=== PATIENT | female | born 1970 | race Caucasian/White ===

== ENCOUNTER 2017-02-16 18:29 | Observation (INO) | payer BC ==
--- NOTE | ~2017-02-16 | DS ---
Discharge Summary [id number] [place]. [address] NAME: ASPEN MAE : 66 STATUS : DIS Tiffany PAT#: [id number] AGE: 46 ADM/REG DATE : 02/16/17 MR#: [id number] REPORT SERV DATE: 02/18/17 DICTATED BY: EMILIA WHITLEY DATE: 02/17/17 REPORT STATUS : Draft TRANSCRIBED BY: MODL DATE: 02/17/17 ADMISSION DATE: 02/16/2017 DISCHARGE DATE: 02/17/2017 DISCHARGE DIAGNOSES: 1. Hypertensive urgency. 2. Hypothyroidism with TSH being 0.009, the patient needs to have outpatient evaluation for current hyperthyroidism status. 3. BMI 36.6. HISTORY OF PRESENT ILLNESS: This is a 46-year-old female patient who came to the hospital after seen by primary care physician for hypertensive urgency. Please see dictated H and P. HOSPITAL COURSE: She was admitted to the hospital, was given hydralazine two doses of 10 mg IV, and she was put on amlodipine on top of her hypertensive medication regimen. Her blood pressure has been around 130 the whole time during the hospitalization and she is not having any symptoms of hypertensive urgency. Had an initial evaluation, which showed TSH being significantly abnormal with a level of 0.009 and with replacement. She also lost 28 pounds within two months. Having this abnormal thyroid laboratory result with significant clinical symptoms with hypertensive urgency, the patient is directed to take additional amlodipine on top of her hypertensive medication regimen and definitely need to evaluate for outpatient thyroid adjustment. I had a long discussion with this patient and family of being in the and they all voiced understanding. She remains in stable condition, will be discharged home, with close followup at the office for the thyroid re-evaluation. DISCHARGE MEDICATIONS: Same as home medications. We are adding amlodipine 10 mg once a day on top of her regular regimen. Again, the patient needs thyroid evaluation. DICTATED BY: Cecilio Torres/FARRAH Emilia Whitley M.D. / [id number] CC: Cecilio Torres SUSAN R.
--- NOTE | ~2017-02-16 | HP ---
History And Physical [address] [place]. [address] NAME: ASPEN MAE : 66 STATUS : ADM Tiffany PAT#: [id number] AGE: 46 ADM/REG DATE : 02/16/17 MR#: [id number] REPORT SERV DATE: 02/17/17 DICTATED BY: ALBAN MCGUIRE DATE: 02/16/17 REPORT STATUS : Draft TRANSCRIBED BY: MODVj DATE: 02/16/17 DATE OF ADMISSION: 02/16/2017 CHIEF COMPLAINT: A 46-year-old female presenting with uncontrolled hypertension. HISTORY OF PRESENTING ILLNESS: The patient's history was obtained through careful interview with the patient and three of her children coupled with review of [employer] and [employer] medical records. The patient actually developed high blood pressure first when she was 22 years old. 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 But over the last nine months in particular, her blood pressure has become quite difficult to control and over the last two weeks, she has had symptomatic blood pressure that is almost constantly high despite taking her medications. Three days ago, she had to leave work early because of dizziness, lightheadedness, nausea, chest discomfort, blurry vision, shortness of breath; all of these seemed to be symptoms that she occasionally develops when she has elevated blood pressure. Examples of blood pressure are readings such as 206/112 and frequent diastolic blood pressures even greater than 120. She describes a headache as well in the back of her head, 7 to 8 out of 10 severity. She describes the chest discomfort under her left breast, a heaviness, 3 to 4 out of 10 severity that resolved with treatment of her blood pressure. REVIEW OF SYSTEMS: Otherwise, a 14-point review of systems was obtained and was negative. PAST MEDICAL HISTORY: 1. Hypertension, developed when the patient was only 22 years old. 2. Asthma. 3. Gastroesophageal reflux disorder. 4. Anxiety. 5. Hypothyroidism. 6. Possible right adrenal adenoma or tumor by imaging about three years ago, but it is uncertain if the patient has had any specific workup regarding this. 7. Negative echocardiogram in 2012. PAST SURGICAL HISTORY: Cholecystectomy and thyroid surgery. ALLERGIES: HYDROCODONE. SOCIAL HISTORY: Is . 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 Has six children. No History And Physical [address] [place]. [address] NAME: ASPEN MEA : 66 STATUS : ADM Tiffany PAT#: [id number] AGE: 46 ADM/REG DATE : 02/16/17 MR#: [id number] REPORT SERV DATE: 02/17/17 DICTATED BY: ALBAN MCGUIRE DATE: 02/16/17 REPORT STATUS : Draft TRANSCRIBED BY: FARRAH DATE: 02/16/17 tobacco abuse. No alcohol abuse. FAMILY HISTORY: Father with hypertension that he developed in his 40s. Mother is healthy. CURRENT MEDICATIONS: Include Xanax, Zyrtec, clonidine 0.1 mg in the morning and 0.1 mg p.r.n., diltiazem extended release 240 mg p.o. q.h.s., Aleve twice a day as needed, [place] Thyroid 360 mg at bedtime, probiotics, multivitamin, Diovan 320 mg p.o. daily. PHYSICAL EXAMINATION: VITAL SIGNS: Temperature 98.2, pulse 89, blood pressure 178/109, respiratory rate 18, and O2 saturation 96% on room air. GENERAL: A pleasant, cooperative female, in no evidence of acute distress. HEENT: Pupils equal, round, and reactive to light. No conjunctival pallor. No scleral icterus. Nares are patent. Oropharynx is clear of obstruction. Moist mucous membranes. NECK: Trachea midline. No thyromegaly. LYMPH: No cervical lymphadenopathy. No supraclavicular lymphadenopathy. RESPIRATORY: Clear to auscultation at bases. No wheezes, rales, or rhonchi. Normal respiratory effort. CARDIOVASCULAR: Regular rate and rhythm. No murmurs, rubs, or gallops. No extremity edema is appreciated currently. ABDOMEN: Completely soft, nontender, nondistended. No hepatosplenomegaly. DERMATOLOGICAL: Warm and dry extremities. No pallor. No cyanosis. PSYCHIATRIC: Normal affect. Good mood. Alert and oriented x3. LABORATORY DATA: White blood cell count 6.6, hemoglobin 16, hematocrit 44, platelets 241. Sodium 143, potassium 4.1, chloride 110, bicarb 26, BUN 10, creatinine 0.81, glucose 108. Troponin 0.03. INR 1.0. STUDIES: 1. EKG by my own evaluation shows sinus rhythm. 2. CT angiogram of the chest shows no pulmonary embolism. No acute abnormality. 3. CT scan of the brain without contrast shows no acute intracranial process. ASSESSMENT AND PLAN: 1. Hypertensive urgency. I would like to change to a clonidine patch, as I am concerned about possible clonidine-mediated rebound hypertension affect. We will add Norvasc and continue p.r.n. medications. 2. History of adrenal adenoma with early-onset hypertension at 22 years of age. We will recheck a CT scan of the abdomen and pelvis to define possible adenoma. Check a 24- hour urine cortisol certainly as the patient has difficulty with weight and at least possible mild cushingoid appearance. We will also screen with a plasma fractionated metanephrine and check aldosterone, renin, and ionized calcium. 3. Hypothyroidism. Check thyroid panel. [facility] History And Physical [address] [address] NAME: ASPEN MAE : 66 STATUS : ADM Tiffany PAT#: [id number] AGE: 46 ADM/REG DATE : 02/16/17 MR#: [id number] REPORT SERV DATE: 02/17/17 DICTATED BY: ALBAN MCGUIRE DATE: 02/16/17 REPORT STATUS : Draft TRANSCRIBED BY: MODVj DATE: 02/16/17 Alban Mcguire M.D. / [id number] CC: Cecilio Torres
[2017-02-16 16:34] LABS: BASOPHILS 0.2 %; BASOPHILS ABSOLUTE 0.01 10/3/uL (0.0-0.16); EOSINOPHILS 0.9 %; EOSINOPHILS ABSOLUTE 0.06 10/3/uL (0.0-0.53); ER CBC TAT 0 Hrs 07 Mins; HEMATOCRIT 44.5 % (36.0-48.0); IMMATURE GRANULOCYTES 0.2 %; IMMATURE GRANULOCYTES ABSOLUTE 0.01 10/3/uL (0.0-0.11); LYMPHOCYTES 22.4 %; LYMPHOCYTES ABSOLUTE 1.47 10/3/uL (0.67-4.30); MEAN CORPUSCULAR HEMOGLOB 30.3 pg (26.0-34.0); MEAN CORPUSCULAR VOLUME 84.3 fL (80-100); MEAN PLATELET VOLUME 11.2 fL (9.2-13.0); MONOCYTES ABSOLUTE 0.46 10/3/uL (0.21-1.20); NEUTROPHILS 69.3 %; NEUTROPHILS ABSOLUTE 4.56 10/3/uL (2.02-8.40); PLATELET COUNT 241 10/3/uL (150-400); RBC DISTRIBUTION WIDTH 11.6 % (12.0-16.0); RED CELL COUNT 5.28 10/6/uL (4.0-5.6); WHITE BLOOD CELLS 6.6 10/3/uL (4.5-10.5)
[2017-02-16 16:36] LABS: MANUAL DIFF NO %
[2017-02-16 16:42] LABS: PARTIAL THROMBO TIME 27.1 SEC (22.5-37.2); PROTIME (NOT ORD) 13.3 SEC (12.0-14.5)
[2017-02-16 16:52] LABS: BUN (BLOOD UREA NITROGEN) 10 MG/DL (6-23); CALCIUM, SERUM 8.7 MG/DL (8.5-10.4); CHEST PAIN PROFILE TAT 0 Hrs 25 Mins; CHLORIDE, SERUM 110 MMOL/L (96-112); CO2 (CARBON DIOXIDE) 26 MMOL/L (24-34); CREATININE 0.81 MG/DL (0.55-1.02); GFR AFRICAN AMERICAN 100 ML/MIN (>=60); GFR NON AFRICAN AMERICAN 86 ML/MIN (>=60); POTASSIUM, SERUM 4.1 MMOL/L (3.5-5.3); SODIUM, SERUM 143 MMOL/L (135-148); TROPONIN I 0.03 NG/ML (<0.05)
[2017-02-16 16:55] LABS: GLUCOSE, SERUM 108 MG/DL (60-99)
[2017-02-16 20:16] LABS: D-DIMER QUANTITATIVE 0.75 ug/mLFEU (< 0.50)
[2017-02-16] MEDS ORDERED: DURICEF PO (22:43)
[2017-02-16] MEDS ORDERED: ARMOUR THYRO180 MG PO (22:44)
[2017-02-16] MEDS ORDERED: DILT-XR240 MG PO (22:45)
[2017-02-16] MEDS ORDERED: XANAX XR0.5 MG PO (22:45)
[2017-02-16] MEDS ORDERED: DIOVAN320 MG PO (22:47)
[2017-02-16] MEDS ORDERED: ALEVE220 MG PO (22:47)
[2017-02-16] MEDS ORDERED: ZYRTEC ALLGY10 MG PO (22:48)
[2017-02-16] MEDS ORDERED: PROBIOTIC OTC PO (22:48)
[2017-02-16] MEDS ORDERED: [UNRECOGNIZED DRUG - OTHER] PO (22:48)
[2017-02-16] MEDS ORDERED: CAT1 PO ×2 (22:49)
[2017-02-17 01:08] LABS: FREE T4 1.11 NG/DL (0.76-1.46)
[2017-02-17 01:10] LABS: ULTRASENSITIVE TSH 0.009 MCIU/ML (0.358-3.740)
[2017-02-17] MEDS ORDERED: NORV10 PO (11:29)
[2017-02-20 21:25] LABS: ALDOSTERONE 3.1 ng/dL (<39.2); ALDOSTERONE/RENIN RAT 0.1 ratio (0.1-3.7)
== END 2017-02-17 14:01 | disposition home or self-care (01) ==
LOC: ER 18:29 → 5NO 22:17
PROVIDERS: Hospitalist
DX: I16.0 Hypertensive urgency (principal); E03.9 Hypothyroidism, unspecified; J45.909 Unspecified asthma, uncomplicated; K21.9 Gastro-esophageal reflux disease without esophagitis; F41.9 Anxiety disorder, unspecified; Z90.49 Acquired absence of other specified parts of digestive tract; Z88.5 Allergy status to narcotic agent; Z82.49 Family history of ischemic heart disease and other diseases of the circulatory system
CPT/HCPCS: 71020; 71275; 80048; 82088; 82330; 83735; 83835; 84244; 84439; 84443; 84481; 84484; 85025; 85379; 85610; 85730; 93005; 96372; 96374; 96376; 99285; A9270-GY; G0378; J0360; Q9967